=== PATIENT | female | born 1965 | race Caucasian/White ===

== ENCOUNTER → 2018-08-30 | Outpatient (CLI) | payer MEDICARE | LOC: M RAD 15:44 | PROVIDERS: ATTEND Orthopaedic Surgery | DX: M50.30 Other cervical disc degeneration, unspecified cervical region (principal); Z53.8 Procedure and treatment not carried out for other reasons ==

== ENCOUNTER → 2020-01-10 | Outpatient (CLI) | payer MEDICARE | LOC: M LABSMTC 10:09 | PROVIDERS: ATTEND Physical Medicine & Rehabilitation | DX: Z03.818 Encounter for observation for suspected exposure to other biological agents ruled out (principal); Z11.59 Encounter for screening for other viral diseases ==

== ENCOUNTER → 2020-01-24 | Outpatient (CLI) | payer MEDICARE | LOC: M LABSMTC 08:56 | PROVIDERS: ATTEND Orthopaedic Surgery | DX: Z01.818 Encounter for other preprocedural examination (principal); Z11.59 Encounter for screening for other viral diseases ==